=== PATIENT | female | born 1985 | race Hispanic/Latino ===

== ENCOUNTER 2017-04-21 18:43 | Emergency (ER) | payer BC, OTHER ==
[2017-04-21 18:52] VITALS: BMI 25.2
[2017-04-21] MEDS ORDERED: Bupivacaine 0.25% Inj(30mL) IJ STA (18:53)
[2017-04-21 18:59] VITALS: RESP 18; TEMP 98.1
--- NOTE | 2017-04-21 19:15 | ED PDOC ---
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 Pt denies any numbness of the finger. Denies pain anywhere else. tetanus up to date. (Ann Marie Dean) Past Medical History - Provider Review Nursing Documentation Reviewed: Yes - Travel History Have you recently traveled outside [place] w/in the past 3 mons?: No - Past History Past History: No Previous - Infectious Disease Hx of Infectious Diseases: None - Tetanus Immunization Tetanus Immunization: Up to Date - Cardiac Hx Cardiac Disorders: No - Pulmonary Hx Respiratory Disorders: No - Neurological Hx Neurological Disorder: No - HEENT Hx HEENT Disorder: No - Renal Hx Renal Disorder: No - Endocrine/Metabolic Hx Endocrine Disorders: No - Hematological/Oncological Hx Blood Disorders: No - Integumentary Hx Dermatological Disorder: No - Musculoskeletal/Rheumatological Hx Musculoskeletal Disorders: No - Gastrointestinal Hx Gastrointestinal Disorders: No - Genitourinary/Gynecological Hx Genitourinary Disorders: Yes Hx Urinary Tract Infection: Yes - Psychiatric Hx Psychophysiologic Disorder: Yes Hx Anxiety: Yes Hx Depression: No Hx Emotional Abuse: No Hx Panic Disorder: Yes Hx Post Traumatic Stress Disorder: No Hx Psychosis: No Hx Physical Abuse: No Hx Schizophrenia: No Hx Sexual Abuse: No Hx Substance Use: No - Past Surgical History Past Surgical History: No Previous - Anesthesia Hx Anesthesia: No Hx Anesthesia Reactions: No Hx Malignant Hyperthermia: No - Suicidal Assessment Feels Threatened In Home Enviroment: No <Ann Marie Dean - Last Filed: 04/21/17 20:49> Family/Social History - Physician Review Nursing Documentation Reviewed: Yes Family/Social History: Unknown Family HX Smoking Status: Light Smoker < 10 Cigarettes Daily Hx Alcohol Use: Yes Hx Substance Use: No Hx Substance Use Treatment: No <Ann Marie Dean - Last Filed: 04/21/17 20:49> Allergies/Home Meds <Jt Villagomez - Last Filed: 04/21/17 20:18> <Cecelia Deane ROSS - Last Filed: 04/21/17 20:49> Allergies/Adverse Reactions: Allergies No Known Allergies Allergy (Verified 04/21/17 18:59) Home Medications: Home Meds Medication Instructions Recorded Confirmed Oral Contraceptive 1 tab PO DAILY 05/15/16 04/21/17 Review of Systems - Physician Review All systems were reviewed & negative as marked: Yes - Review of Systems Musculoskeletal: Other (2nd finger pain) Skin: Laceration (2nd finger) <Cecelia Deane ROSS - Last Filed: 04/21/17 20:49> Physical Exam Temperature: Afebrile Pulse: Tachycardic Pain Distress: Moderate Mental Status: Positive for: Alert and Oriented X 3 - Systems Exam Upper Extremity: Present: Normal ROM (of 2nd finger), NORMAL PULSES, Tenderness (on the finger pad of 2nd finger), Neurovascularly Intact Skin: Present: Laceration (1 cm laceration of 2nd finger pad) Psychiatric: Present: Alert, Oriented x 3 <DianneAnn Marie HAWKINS - Last Filed: 04/21/17 20:49> Vital Signs Temp Pulse Resp BP Pulse Ox 04/21/17 20:38 85 18 132/75 99 04/21/17 19:02 148/92 H 04/21/17 18:57 98.1 F 106 H 18 96 Medical Decision Making <EstherJt loredo - Last Filed: 04/21/17 20:18> Reassessment Condition: Improved <DianneCeceliacarmen HAWKINS - Last Filed: 04/21/17 20:49> ED Course and Treatment: 04/21/17 19:16 Marcaine ordered to anesthetize finger. Normal saline and betadine to irrigate wound. Tetanus not administered as last tetanus vaccine was 2 yrs ago. 8 5.0 nylon sutures placed. Bacitracin applied. Finger splint placed. Dressing placed. Pt advised to follow up with orthopedist Dr. Daily in 2 days. Pt expressed understanding and agrees with the plan. Naproxen RX and Keflex RX given. (Ann Marie Dean) - RAD Interpretation Radiology Orders: 04/21/17 18:54 HAND RIGHT 2ND DIGIT (FINGER) [RAD] Stat - Medication Orders Current Medication Orders: Discontinued Medications Bupivacaine HCl (Marcaine 0.25%) 10 ml IJ STAT STA Stop: 04/21/17 18:54 Last Admin: 04/21/17 19:14 Dose: Comments: PA to administer. Ceftriaxone Sodium (Rocephin 1 Gram Ivpb) 1 gm in 100 mls @ 200 mls/hr IVPB STAT STA PRN Reason: Protocol Stop: 04/21/17 19:48 Last Admin: 04/21/17 20:03 Dose: 200 mls/hr eMAR Start Stop Document 04/21/17 20:03 RD (Rec: 04/21/17 20:03 RD [id number]) Intravenous Solution Start Date 04/21/17 Start Time 20:03 End Date 04/21/17 End time 20:33 Total Infusion Time 30 - PA / LIGHT COIL WINDER / Resident Statement MD/DO has examined the patient and agrees with the treatment plan. <Jt Villagomez - Last Filed: 04/21/17 20:18> Disposition/Present on Arrival <Jt Villagomez - Last Filed: 04/21/17 20:18> - Present on Arrival Any Indicators Present on Arrival: No History of DVT/PE: No History of Uncontrolled Diabetes: No Urinary Catheter: No History of Decub. Ulcer: No History Surgical Site Infection Following: None - Disposition Have Diagnosis and Disposition been Completed?: Yes Disposition Time: 20:24 Patient Plan: Discharge <Ann Marie Dean - Last Filed: 04/21/17 20:49> - Disposition Diagnosis: Laceration, Finger fracture Disposition: HOME/ ROUTINE Condition: STABLE Discharge Instructions (ExitCare): Laceration (ED), Finger Fracture (ED) Print Language: SETSWANA Additional Instructions: Keep dressing and splint clean dry and intact. Take the medications as directed. Follow up with hand surgeon in 2 days for further management of fracture and laceration. Return to the ED if pain worsens or if new concerning symptoms develop such as numbness of finger or fever. Prescriptions: Cephalexin [cephalexin] 500 mg PO QID #28 cap Naproxen [Naprosyn] 500 mg PO BID PRN #30 tablet PRN Reason: Pain, Moderate (4-7) Referrals: Rocky Daily MD [Staff Provider] - Follow up with primary Forms: [employer] (Maldivian)
[2017-04-21] MEDS ORDERED: cefTRIAXone 1 gm 1 GM/100 ML BAG IVPB STA (19:19)
[2017-04-21 20:39] VITALS: BP 132/75; PULSE 85; O2SAT 99
--- NOTE | 2017-04-22 13:35 | RAD ---
PROCEDURE: Right Index finger radiographs. HISTORY: finger trauma COMPARISON: None. TECHNIQUE: AP radiograph of the right hand, as well as spot oblique and lateral images of index finger were obtained. FINDINGS: RIGHT INDEX FINGER: There is a nondisplaced crush fracture of the tuft of the 2nd distal phalanx. Remainder of the right hand (as seen on the AP view) grossly intact. JOINTS: Normal. SOFT TISSUES: Soft tissue swelling about the distal aspect of the 2nd digit. OTHER FINDINGS: None. IMPRESSION: Nondisplaced crush fracture of the tuft of the 2nd distal phalanx.
== END 2017-04-21 20:38 | disposition home or self-care (01) ==
LOC: ED 18:43
DX: S61.210A Laceration without foreign body of right index finger without damage to nail, initial encounter (principal); S62.660A Nondisplaced fracture of distal phalanx of right index finger, initial encounter for closed fracture; W23.0XXA Caught, crushed, jammed, or pinched between moving objects, initial encounter; Y92.89 Other specified places as the place of occurrence of the external cause
CPT/HCPCS: 12001; 73140; 96365; 99284; J0696

== ENCOUNTER 2017-05-06 11:16 | Emergency (ER) | payer BC ==
[2017-05-06 11:17] VITALS: BMI 25.2
--- NOTE | 2017-05-06 12:37 | ED PDOC ---
Arrival/HPI - General Chief Complaint: Suture/Staple Removal Time Seen by Provider: 05/06/17 11:32 Historian: Patient - History of Present Illness Narrative History of Present Illness (Text): 05/06/17 12:47 31yr old female presents today for suture removal to right 2nd finger. pt states on 04/21 she closed finger in door. pt states finger is looking much better. pt c/o minimal pain to distal tip of finger. states she removed finger splint the day after the injury. pt states she has been keeping the wound tightly wrapped and covered with bacitracin. pt denies fever/chills. pt states she didnt f/u with hand specialist. pt states she completed course of ABX. denies any other complaints. Time/Duration: > week Symptom Onset: Sudden Symptom Course: Improving Quality: Throbbing Severity Level: 2 Past Medical History - Provider Review Nursing Documentation Reviewed: Yes - Travel History Have you recently traveled outside [place] w/in the past 3 mons?: No - Past History Past History: No Previous - Infectious Disease Hx of Infectious Diseases: None - Tetanus Immunization Tetanus Immunization: Up to Date - Reproductive Menopause: No - Cardiac Hx Cardiac Disorders: No - Pulmonary Hx Respiratory Disorders: No - Neurological Hx Neurological Disorder: No - HEENT Hx HEENT Disorder: No - Renal Hx Renal Disorder: No - Endocrine/Metabolic Hx Endocrine Disorders: No - Hematological/Oncological Hx Blood Disorders: No - Integumentary Hx Dermatological Disorder: No - Musculoskeletal/Rheumatological Hx Musculoskeletal Disorders: No - Gastrointestinal Hx Gastrointestinal Disorders: No - Genitourinary/Gynecological Hx Genitourinary Disorders: Yes Hx Urinary Tract Infection: Yes - Psychiatric Hx Psychophysiologic Disorder: Yes Hx Anxiety: Yes Hx Depression: No Hx Emotional Abuse: No Hx Panic Disorder: Yes Hx Post Traumatic Stress Disorder: No Hx Psychosis: No Hx Physical Abuse: No Hx Schizophrenia: No Hx Sexual Abuse: No Hx Substance Use: No - Past Surgical History Past Surgical History: No Previous - Anesthesia Hx Anesthesia: No Hx Anesthesia Reactions: No Hx Malignant Hyperthermia: No - Suicidal Assessment Feels Threatened In Home Enviroment: No Family/Social History - Physician Review Nursing Documentation Reviewed: Yes Family/Social History: Unknown Family HX Smoking Status: Light Smoker < 10 Cigarettes Daily Hx Alcohol Use: Yes Hx Substance Use: No Hx Substance Use Treatment: No Allergies/Home Meds Allergies/Adverse Reactions: Allergies No Known Allergies Allergy (Verified 05/06/17 12:01) Review of Systems - Review of Systems Constitutional: absent: Fatigue, Fevers Respiratory: absent: SOB, Cough Cardiovascular: absent: Chest Pain, Palpitations Gastrointestinal: absent: Abdominal Pain, Nausea, Vomiting Musculoskeletal: Arthralgias Skin: Laceration Neurological: absent: Headache, Dizziness Psychiatric: absent: Anxiety, Depression, Suicidal Ideation Physical Exam Vital Signs Reviewed: Yes Vital Signs Temp Pulse Resp BP Pulse Ox 05/06/17 12:43 98.3 F 88 16 147/107 H 99 Temperature: Afebrile Blood Pressure: Hypertensive Pulse: Regular Respiratory Rate: Normal Appearance: Positive for: Well-Appearing, Non-Toxic, Comfortable Pain Distress: None Mental Status: Positive for: Alert and Oriented X 3 - Systems Exam Head: Present: Atraumatic Respiratory/Chest: Present: Clear to Auscultation Cardiovascular: Present: Regular Rate and Rhythm Upper Extremity: Present: NORMAL PULSES, Tenderness (right 2nd finger; there is a c shaped laceration along the volar aspect of the finger with [address] + maceration. + edema to distal tip; nail armenian in place; obscuring visualization of the nail. sensation and distal pulses intact. ), Swelling, Neurovascularly Intact, Capillary Refill < 2s. No: Normal ROM (limited flexion at DIP), Erythema, Temperature Abnormalties Neurological: Present: GCS=15 Skin: Present: Warm, Dry Psychiatric: Present: Alert, Oriented x 3 Medical Decision Making ED Course and Treatment: 05/06/17 12:38 31yr old female with laceration to right 2nd finger s/p being closed in wooden door 04/21. maceration noted around laceration. no purulent discharge. no signs of infection ; ? difficulty with healing due to maceration 4sutures removed; advised patient to stop keeping wound tightly covered and keep it dry. pt did not f/u with hand specialist. states she has been f/u with PMD. states it was $300 to f/u with hand specialist. pt in er is refusing to have nail armenian removed to evaluate for subungal hematoma. pt states she removed her finger splint the next day after being seen in the er. pt advised of elevated bp. stressed importance of f/u with hand specialist. advised keeping wound clean and dry and return in 2 days for remaining 4 sutures to be removed. impression; finger laceration, wound check, suture removal keep wound clean and dry follow up with the Hand specialist within the next 2 days. return immediately if signs of infection develop; high fevers, increasing pain, redness, swelling or purulent discharge Return in 2 day for the remaining 4 sutures to be removed. Disposition/Present on Arrival - Present on Arrival Any Indicators Present on Arrival: No History of DVT/PE: No History of Uncontrolled Diabetes: No Urinary Catheter: No History of Decub. Ulcer: No History Surgical Site Infection Following: None - Disposition Have Diagnosis and Disposition been Completed?: Yes Diagnosis: Encounter for wound re-check, Encounter for removal of sutures Disposition: HOME/ ROUTINE Disposition Time: 12:34 Patient Plan: Discharge Condition: GOOD Discharge Instructions (ExitCare): Finger Fracture (ED), Finger Laceration (ED) Additional Instructions: keep wound clean and dry follow up with the Hand specialist within the next 2 days. return immediately if signs of infection develop; high fevers, increasing pain, redness, swelling or purulent discharge Return in 2 day for the remaining 4 sutures to be removed. Referrals: [facility] Gus Rerudy, [Primary Care Provider] - Follow up with primary Brian Mars MD [Staff Provider] - Follow up with primary Rocky Daily MD [Staff Provider] - Follow up with primary Forms: [employer] (Japanese)
[2017-05-06 12:44] VITALS: BP 147/107; RESP 16; TEMP 98.3
[2017-05-06 12:55] VITALS: PULSE 88; O2SAT 99
== END 2017-05-06 13:23 | disposition home or self-care (01) ==
LOC: ED 11:16
DX: Z48.02 Encounter for removal of sutures (principal)

== ENCOUNTER 2017-05-08 20:35 | Emergency (ER) | payer BC ==
[2017-05-08 20:36] VITALS: BMI 25.2
[2017-05-08 20:40] VITALS: BP 128/79; PULSE 75; RESP 16; TEMP 98.8; O2SAT 100
--- NOTE | 2017-05-08 20:51 | ED PDOC ---
Arrival/HPI - General Chief Complaint: Suture/Staple Removal Time Seen by Provider: 05/08/17 20:41 Historian: Patient - History of Present Illness Narrative History of Present Illness (Text): 05/08/17 20:48 31yo female present to Ed for suture removal from her right 2nd finger. States she was here 2days ago and some of the sutures was removed. she came to ED today for the remaining sutures to be removed. she denies redness, discharge from the wound , fever. Past Medical History - Provider Review Nursing Documentation Reviewed: Yes - Past History Past History: No Previous - Infectious Disease Hx of Infectious Diseases: None - Tetanus Immunization Tetanus Immunization: Up to Date - Cardiac Hx Cardiac Disorders: No - Pulmonary Hx Respiratory Disorders: No - Neurological Hx Neurological Disorder: No - HEENT Hx HEENT Disorder: No - Renal Hx Renal Disorder: No - Endocrine/Metabolic Hx Endocrine Disorders: No - Hematological/Oncological Hx Blood Disorders: No - Integumentary Hx Dermatological Disorder: No - Musculoskeletal/Rheumatological Hx Musculoskeletal Disorders: No - Gastrointestinal Hx Gastrointestinal Disorders: No - Genitourinary/Gynecological Hx Genitourinary Disorders: Yes Hx Urinary Tract Infection: Yes - Psychiatric Hx Psychophysiologic Disorder: Yes Hx Anxiety: Yes Hx Depression: No Hx Emotional Abuse: No Hx Panic Disorder: Yes Hx Post Traumatic Stress Disorder: No Hx Psychosis: No Hx Physical Abuse: No Hx Schizophrenia: No Hx Sexual Abuse: No Hx Substance Use: No - Past Surgical History Past Surgical History: No Previous - Anesthesia Hx Anesthesia: No Hx Anesthesia Reactions: No Hx Malignant Hyperthermia: No - Suicidal Assessment Feels Threatened In Home Enviroment: No Family/Social History - Physician Review Nursing Documentation Reviewed: Yes Family/Social History: Unknown Family HX Smoking Status: Light Smoker < 10 Cigarettes Daily Hx Alcohol Use: Yes Hx Substance Use: No Hx Substance Use Treatment: No Allergies/Home Meds Allergies/Adverse Reactions: Allergies No Known Allergies Allergy (Verified 05/08/17 20:38) Review of Systems - Physician Review All systems were reviewed & negative as marked: Yes - Review of Systems Constitutional: Normal Eyes: Normal ENT: Normal Respiratory: Normal Cardiovascular: Normal Gastrointestinal: Normal Genitourinary Female: Normal Musculoskeletal: Normal Skin: Other (suture removal from right 2nd finger) Neurological: Normal Endocrine: Normal Hemo/Lymphatic: Normal Psychiatric: Normal Physical Exam Vital Signs Reviewed: Yes Vital Signs Temp Pulse Resp BP Pulse Ox 05/08/17 20:40 98.8 F 75 16 128/79 100 Temperature: Afebrile Blood Pressure: Normal Pulse: Regular Respiratory Rate: Normal Appearance: Positive for: Well-Appearing, Non-Toxic, Comfortable Pain Distress: None Mental Status: Positive for: Alert and Oriented X 3 - Systems Exam Head: Present: Atraumatic, Normocephalic Pupils: Present: PERRL Extroacular Muscles: Present: EOMI Conjunctiva: Present: Normal Mouth: Present: Moist Mucous Membranes Neck: Present: Normal Range of Motion Respiratory/Chest: Present: Clear to Auscultation, Good Air Exchange. No: Respiratory Distress, Accessory Muscle Use Cardiovascular: Present: Regular Rate and Rhythm, Normal S1, S2. No: Murmurs Abdomen: Present: Normal Bowel Sounds. No: Tenderness, Distention, Peritoneal Signs Back: Present: Normal Inspection Upper Extremity: Present: Normal Inspection. No: Cyanosis, Edema Lower Extremity: Present: Normal Inspection. No: Edema Neurological: Present: GCS=15, CN II-XII Intact, Speech Normal Skin: Present: Warm, Dry, Normal Color, Other ([address] on rght index finger tuft. No erythema. No discharge. No sign of infection). No: Rashes Psychiatric: Present: Alert, Oriented x 3, Normal Insight, Normal Concentration Medical Decision Making ED Course and Treatment: 05/08/17 20:52 suture area cleaned with betadine. 4sutures remain. Edges appear well approximated. Bacitracine applied. Pt advised to continue keeping wound clean and dry. Referred to her PMD. TRT ED for fever, redness, discharge. Disposition/Present on Arrival - Present on Arrival Any Indicators Present on Arrival: No History of DVT/PE: No History of Uncontrolled Diabetes: No Urinary Catheter: No History of Decub. Ulcer: No History Surgical Site Infection Following: None - Disposition Have Diagnosis and Disposition been Completed?: Yes Diagnosis: Visit for suture removal Disposition: HOME/ ROUTINE Disposition Time: 20:55 Patient Plan: Discharge Condition: STABLE Discharge Instructions (ExitCare): Stitches Removal (ED) Additional Instructions: follow up with your doctor Keep wound clean and dry Return to ED for fever, discharge, redness Referrals: [facility] at [facility] [place] [Outside] - Follow up with primary
== END 2017-05-08 21:22 | disposition home or self-care (01) ==
LOC: ED 20:35
DX: Z48.02 Encounter for removal of sutures (principal)

== ENCOUNTER 2017-05-13 20:01 | Emergency (ER) | payer BC ==
[2017-05-13 20:12] VITALS: BMI 27.4
--- NOTE | 2017-05-13 20:32 | ED PDOC ---
Arrival/HPI - General Chief Complaint: Alcohol Ingestion Time Seen by Provider: 05/13/17 20:03 Past Medical History - Past History Past History: No Previous - Infectious Disease Hx of Infectious Diseases: None - Tetanus Immunization Tetanus Immunization: Up to Date - Cardiac Hx Cardiac Disorders: No - Pulmonary Hx Respiratory Disorders: No - Neurological Hx Neurological Disorder: No - HEENT Hx HEENT Disorder: No - Renal Hx Renal Disorder: No - Endocrine/Metabolic Hx Endocrine Disorders: No - Hematological/Oncological Hx Blood Disorders: No - Integumentary Hx Dermatological Disorder: No - Musculoskeletal/Rheumatological Hx Musculoskeletal Disorders: No - Gastrointestinal Hx Gastrointestinal Disorders: No - Genitourinary/Gynecological Hx Genitourinary Disorders: Yes Hx Urinary Tract Infection: Yes - Psychiatric Hx Psychophysiologic Disorder: Yes Hx Anxiety: Yes Hx Depression: No Hx Emotional Abuse: No Hx Panic Disorder: Yes Hx Post Traumatic Stress Disorder: No Hx Psychosis: No Hx Physical Abuse: No Hx Schizophrenia: No Hx Sexual Abuse: No Hx Substance Use: No - Past Surgical History Past Surgical History: No Previous - Anesthesia Hx Anesthesia: No Hx Anesthesia Reactions: No Hx Malignant Hyperthermia: No - Suicidal Assessment Feels Threatened In Home Enviroment: No Family/Social History Smoking Status: Light Smoker < 10 Cigarettes Daily Hx Alcohol Use: Yes Hx Substance Use: No Hx Substance Use Treatment: No Allergies/Home Meds Allergies/Adverse Reactions: Allergies No Known Allergies Allergy (Verified 05/13/17 20:12) Home Medications: Home Meds Medication Instructions Recorded Confirmed Unobtainable 05/13/17 05/13/17 Disposition/Present on Arrival - Present on Arrival History of DVT/PE: No History of Uncontrolled Diabetes: No Urinary Catheter: No History of Decub. Ulcer: No History Surgical Site Infection Following: None - Disposition Referrals: [facility] Gus Torres, [Primary Care Provider] - Follow up with primary Forms: [email or web address] (South African)
--- NOTE | 2017-05-13 20:32 | ED PDOC ---
Arrival/HPI - General Chief Complaint: Alcohol Ingestion Time Seen by Provider: 05/13/17 20:03 Historian: Patient - History of Present Illness Narrative History of Present Illness (Text): pt admits to alcohol use and otherwise otherwise you were without head injury/ fall/neck pain/nausea/vomiting/headache/dizziness/difficulty breathing/chest pain/abdomen pain/numbness/tingling/loss of limb function/pain with urination/ thoughts to harm herself or others or hallucinations. 05/13/17 20:29 Past Medical History - Provider Review Nursing Documentation Reviewed: Yes - Travel History Have you recently traveled outside [place] w/in the past 3 mons?: No - Past History Past History: No Previous - Infectious Disease Hx of Infectious Diseases: None - Tetanus Immunization Tetanus Immunization: Up to Date - Cardiac Hx Cardiac Disorders: No - Pulmonary Hx Respiratory Disorders: No - Neurological Hx Neurological Disorder: No - HEENT Hx HEENT Disorder: No - Renal Hx Renal Disorder: No - Endocrine/Metabolic Hx Endocrine Disorders: No - Hematological/Oncological Hx Blood Disorders: No - Integumentary Hx Dermatological Disorder: No - Musculoskeletal/Rheumatological Hx Musculoskeletal Disorders: No - Gastrointestinal Hx Gastrointestinal Disorders: No - Genitourinary/Gynecological Hx Genitourinary Disorders: Yes Hx Urinary Tract Infection: Yes - Psychiatric Hx Psychophysiologic Disorder: Yes Hx Anxiety: Yes Hx Depression: No Hx Emotional Abuse: No Hx Panic Disorder: Yes Hx Post Traumatic Stress Disorder: No Hx Psychosis: No Hx Physical Abuse: No Hx Schizophrenia: No Hx Sexual Abuse: No Hx Substance Use: No - Past Surgical History Past Surgical History: No Previous - Anesthesia Hx Anesthesia: No Hx Anesthesia Reactions: No Hx Malignant Hyperthermia: No - Suicidal Assessment Feels Threatened In Home Enviroment: No Family/Social History Family/Social History: No Known Family HX Smoking Status: Light Smoker < 10 Cigarettes Daily Hx Alcohol Use: Yes Hx Substance Use: No Hx Substance Use Treatment: No Allergies/Home Meds Allergies/Adverse Reactions: Allergies No Known Allergies Allergy (Verified 05/13/17 20:12) Home Medications: Home Meds Medication Instructions Recorded Confirmed Unobtainable 05/13/17 05/13/17 Review of Systems - Review of Systems Constitutional: Normal Eyes: Normal ENT: Normal Respiratory: Normal Cardiovascular: Normal Gastrointestinal: Normal Genitourinary Female: Normal Musculoskeletal: Normal Skin: Normal Neurological: Normal Endocrine: Normal Hemo/Lymphatic: Normal Psychiatric: Normal Physical Exam Vital Signs Reviewed: Yes Temperature: Afebrile Blood Pressure: Normal Pulse: Regular Respiratory Rate: Normal Appearance: Positive for: Well-Appearing, Other (intoxicated) Pain Distress: None Mental Status: Positive for: Alert and Oriented X 3 - Systems Exam Head: Present: Atraumatic, Normocephalic Pupils: Present: PERRL Extroacular Muscles: Present: EOMI Conjunctiva: Present: Normal Ears: Present: Normal Mouth: Present: Moist Mucous Membranes Pharnyx: Present: Normal Nose (External): Present: Atraumatic Nose (Internal): Present: Normal Inspection Neck: Present: Normal Range of Motion. No: Meningeal Signs, MIDLINE TENDERNESS , Paraspinal Tenderness, JVD, Lymphadenopathy, Bruit, Trachea Midline, Other Respiratory/Chest: Present: Clear to Auscultation Cardiovascular: Present: Regular Rate and Rhythm Abdomen: No: Tenderness, Distention, Normal Bowel Sounds, Peritoneal Signs, Rebound, Guarding, McBurney's Point Tender, Rovsing's Sign Present, Hernias, Feeding Tubes, Ostomy Tubes, Mass/Organomegaly, Scars, Other Back: Present: Normal Inspection. No: CVA Tenderness, Midline Tenderness, Paraspinal Tenderness, Pain with Leg Raise, Decubitus Ulcer, Other Upper Extremity: Present: Normal Inspection Lower Extremity: Present: Normal Inspection Neurological: Present: GCS=15, CN II-XII Intact, Speech Normal, Motor Func Grossly Intact, Other (w intoxication) Skin: Present: Normal Color Psychiatric: Present: Alert, Oriented x 3, Normal Insight, Normal Concentration Medical Decision Making ED Course and Treatment: pt admits to alcohol use and otherwise otherwise you were without head injury/ fall/neck pain/nausea/vomiting/headache/dizziness/difficulty breathing/chest pain/abdomen pain/numbness/tingling/loss of limb function/pain with urination/ thoughts to harm herself or others or hallucinations. you were smiling with your mom, breathing comfortably, alert/oriented, good strength/sensation, walking easily, no fever temp 98.7, stable heart rate 97, excellent oxygen level room air 99, elevated blood pressure 132/78 which we recommend repeat 2-3 days primary care office to determine further treatment, you refused urine test and cautioned for missed diagnosis but you stated your not and your mom agreed, observed with improvement in sober status in the ED, counselled to stop drinking and discharged home safely with your mom. 1. Recommend followup primary care 2-3 days, with referral to detoxification clinic. 2. if any worsening pain, fever, chills, nausea, vomiting, difficulty breathing, loss of limb function, pain with urination or any medical condition then return to the ED. 05/13/17 20:33 05/13/17 21:17 05/13/17 21:18 05/13/17 21:23 Disposition/Present on Arrival - Present on Arrival Any Indicators Present on Arrival: Yes History of DVT/PE: No History of Uncontrolled Diabetes: No Urinary Catheter: No History of Decub. Ulcer: No History Surgical Site Infection Following: None - Disposition Have Diagnosis and Disposition been Completed?: Yes Diagnosis: Alcohol intoxication Disposition: HOME/ ROUTINE Disposition Time: 21:20 Patient Plan: Discharge Patient Problems: Current Active Problems Problem Status Onset Alcohol intoxication Acute Condition: IMPROVED Additional Instructions: You admited to alcohol use and otherwise otherwise you were without head injury/ fall/neck pain/nausea/vomiting/headache/dizziness/difficulty breathing/chest pain/abdomen pain/numbness/tingling/loss of limb function/pain with urination/ thoughts to harm herself or others or hallucinations. you were smiling with your mom, breathing comfortably, alert/oriented, good strength/sensation, walking easily, no fever temp 98.7, stable heart rate 97, excellent oxygen level room air 99, elevated blood pressure 132/78 which we recommend repeat 2-3 days primary care office to determine further treatment, you refused urine test and cautioned for missed diagnosis but you stated your not and your mom agreed, observed with improvement in sober status in the ED, counselled to stop drinking and discharged home safely with your mom. 1. Recommend followup primary care 2-3 days, with referral to detoxification clinic. 2. if any worsening pain, fever, chills, nausea, vomiting, difficulty breathing, loss of limb function, pain with urination or any medical condition then return to the ED. Referrals: Deana Torres, [Primary Care Provider] - Follow up with primary Forms: [employer] (South Korean)
[2017-05-13 21:23] VITALS: BP 132/78; PULSE 97; RESP 18; TEMP 98.7; O2SAT 99
== END 2017-05-13 21:30 | disposition home or self-care (01) ==
LOC: ED 20:01
DX: F10.129 Alcohol abuse with intoxication, unspecified (principal); F17.210 Nicotine dependence, cigarettes, uncomplicated

== ENCOUNTER 2018-06-29 10:48 | Emergency (ER) | payer BC, OTHER ==
[2018-06-29 10:54] VITALS: BMI 25.8
[2018-06-29 11:01] VITALS: BP 129/82; PULSE 79; RESP 18; TEMP 99.4; O2SAT 96
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
== END 2018-06-29 12:47 | disposition home or self-care (01) ==
LOC: ED 10:48
DX: R42 Dizziness and giddiness (principal); F17.210 Nicotine dependence, cigarettes, uncomplicated

== ENCOUNTER 2018-08-19 16:53 | Emergency (ER) | payer OTHER ==
[2018-08-19 16:54] VITALS: BMI 25.8
[2018-08-19 17:10] VITALS: RESP 18
[2018-08-19] MEDS ORDERED: Sodium Chloride 0.9% 500 ML IV STA (17:39)
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
[2018-08-19 18:20] LABS: BASO # 0.05 K/mm3 (0.0-2.0); BASO % 0.5 % (0.0-3.0); EOS # 0.1 (0.0-0.7); EOS % 1.4 % (1.5-5.0); HEMOGLOBIN 11.1 g/dL (12.0-16.0); LYMPH # 1.7 (1.2-3.4); LYMPH % 17.9 % (22.0-35.0); MEAN CELL VOLUME 85.5 fl (80.0-105.0); MEAN CORPUSCULAR HEMOGLOBIN 27.3 pg (25.0-35.0); MEAN PLATELET VOLUME 9.4 fl (7.0-11.0); MONO # 0.7 (0.1-0.6); MONO % 7.6 % (1.0-6.0); RBC 4.06 10^6/uL (3.5-6.1); RED CELL DISTRIBUTION WIDTH 14.2 % (11.5-14.5); WHITE BLOOD COUNT 9.4 10^3/uL (4.5-11.0)
[2018-08-19 18:23] LABS: ALB/GLOB RATIO 1.1 (1.1-1.8); ALBUMIN 4.1 g/dL (3.0-4.8); ALT/SGPT 22 U/L (7-56); AST/SGOT 38 U/L (14-36); BLOOD UREA NITROGEN 16 mg/dL (7-21); CALCIUM 9.3 mg/dL (8.4-10.5); GFR NON-AFRICAN AMERICAN > 60
[2018-08-19 18:26] LABS: URINE BILIRUBIN NEGATIVE (NEGATIVE); URINE BLOOD NEGATIVE (NEGATIVE); URINE GLUCOSE (UA) NEGATIVE (NEGATIVE); URINE LEUKOCYTE ESTERASE LARGE Leu/uL (NEGATIVE); URINE PROTEIN NEGATIVE mg/dL (<30 mg/dL); URINE UROBILINOGEN 0.2 E.U./dL (<1 E.U./dL)
[2018-08-19 18:30] LABS: INR 0.95; PARTIAL THROMBOPLASTIN TIME 27.5 Seconds (26.9-38.3); PROTHROMBIN TIME 10.6 SECONDS (9.4-12.5)
[2018-08-19 18:33] LABS: URINE APPEARANCE CLEAR (CLEAR); URINE COLOR YELLOW (YELLOW)
[2018-08-19] MEDS ORDERED: Oxycodone/Acetaminophen 5/325 mg Tab PO STA (18:54)
[2018-08-19] MEDS ORDERED: Iohexol 350 MG/100 ML VIAL ONE (19:04)
[2018-08-19 19:06] LABS: URINE BACTERIA MOD /hpf
[2018-08-19 21:59] VITALS: BP 135/86; PULSE 71; TEMP 98.3; O2SAT 99
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
== END 2018-08-19 21:53 | disposition home or self-care (01) ==
LOC: ED 16:53
DX: S22.31XA Fracture of one rib, right side, initial encounter for closed fracture (principal); S00.83XA Contusion of other part of head, initial encounter; S30.1XXA Contusion of abdominal wall, initial encounter; S70.02XA Contusion of left hip, initial encounter; Y08.89XA Assault by other specified means, initial encounter; N39.0 Urinary tract infection, site not specified
CPT/HCPCS: 70450; 70486; 71260; 74177; 80053; 81001; 81025; 85025; 85610; 85730; 87086; 99283; J7040; Q9967